=== PATIENT | male | born 1960 | race Caucasian/White ===

== ENCOUNTER → 2018-04-18 11:19 | Outpatient (CLI) | payer OTHER, SELFPAY ==
[2018-04-21 09:05] LABS: Almond <0.10 kU/L (Class 0); Clam <0.10 kU/L (Class 0); Codfish <0.10 kU/L (Class 0); Corn <0.10 kU/L (Class 0); Egg, White 4.17 kU/L (Class IV); Peanut <0.10 kU/L (Class 0); SCALLOP <0.10 kU/L (Class 0); SESAME SEED <0.10 kU/L (Class 0); Shrimp 0.58 kU/L (Class II); Soybean 0.12 kU/L (Class 0/I); Tuna <0.10 kU/L (Class 0); Walnut, (Food) <0.10 kU/L (Class 0)
[2018-04-21 14:30] LABS: Egg, Whole 0.89 kU/L (Class II)
== END ==
PROVIDERS: Referring Provider Otolaryngology Otolaryngology/Facial Plastic Surgery; Visit Provider Otolaryngology Otolaryngology/Facial Plastic Surgery
DX: T78.40XA Allergy, unspecified, initial encounter (principal)
CPT/HCPCS: 36415; 86003